=== PATIENT | male | born 1955 | race American Indian/Alaskan Native ===

== ENCOUNTER 2017-04-25 15:00 | Emergency (ER) | payer SELFPAY ==
[2017-04-25 15:00] VITALS: BMI 24.3
[2017-04-25 15:04] VITALS: BP 106/66; PULSE 60; RESP 18; TEMP 97.4; O2SAT 99
--- NOTE | 2017-04-25 15:21 | ED PDOC ---
HPI: Psych/Substance Abuse Time Seen by Provider: 04/25/17 15:09 Chief Complaint (Nursing): Medical Clearance Chief Complaint (Provider): SI for years, in police custody History Per: Patient History/Exam Limitations: no limitations Current Symptoms Are (Timing): Still Present Additional Complaint(s): Pt reports history of depression and reports SI. Pt states he has had thoughts of suicide for years. Pt denies plan. Pt denies fever/chills. Denies chest pain , SOB, etc. Past Medical History Reviewed: Historical Data, Nursing Documentation, Vital Signs Vital Signs: Last Vital Signs Temp 97.4 F L 04/25/17 15:01 Pulse 60 04/25/17 15:01 Resp 18 04/25/17 15:01 BP 106/66 04/25/17 15:01 Pulse Ox 99 04/25/17 15:01 - Medical History PMH: Depression, Hepatitis Denies: HIV, HTN, Seizures, Sexually Transmitted Disease - Surgical History Surgical History: No Surg Hx - Family History Family History: States: No Known Family Hx - Living Arrangements Living Arrangements: Other - Social History Current smoker - smoking cessation education provided: Yes Drugs: Opiates - Immunization History Hx Tetanus Toxoid Vaccination: No Hx Influenza Vaccination: No Hx Pneumococcal Vaccination: No - Home Medications Home Medications: Ambulatory Orders Medication Instructions Recorded No Known Home Med [No Known Home 12/17/14 Med] - Allergies Allergies/Adverse Reactions: Allergies Allergy/AdvReac Type Severity Reaction Status Date / Time No Known Allergies Allergy Verified 12/21/14 11:01 Review of Systems ROS Statement: Except As Marked, All Systems Reviewed And Found Negative Cardiovascular: Negative for: Chest Pain, Palpitations Respiratory: Negative for: Shortness of Breath Physical Exam - Reviewed Nursing Documentation Reviewed: Yes Vital Signs Reviewed: Yes - Physical Exam Appears: Positive for: Well, Non-toxic, No Acute Distress Head Exam: Positive for: ATRAUMATIC, NORMAL INSPECTION, NORMOCEPHALIC Skin: Positive for: Normal Color, Warm, DRY Eye Exam: Positive for: Normal appearance ENT: Positive for: Normal ENT Inspection Neck: Positive for: Normal, Painless ROM Cardiovascular/Chest: Positive for: Regular Rate, Rhythm Respiratory: Positive for: CNT, Normal Breath Sounds Gastrointestinal/Abdominal: Positive for: Normal Exam, Bowel Sounds, Soft Back: Positive for: Normal Inspection Extremity: Positive for: Normal ROM Neurologic/Psych: Positive for: Alert, Oriented - ECG O2 Sat by Pulse Oximetry: 99 Disposition - Clinical Impression Clinical Impression: Heroin abuse - Patient ED Disposition Is Patient to be Admitted: No Counseled Patient/Family Regarding: Diagnosis, Need For Followup - Disposition Disposition: Routine/Home Disposition Time: 16:19 Condition: GOOD Additional Instructions: Pt is medically and psychiatrically stable for incarceration. Instructions: Narcotic Abuse (ED)
== END 2017-04-25 16:26 | disposition home or self-care (01) ==
LOC: H.ER 15:00
DX: F11.10 Opioid abuse, uncomplicated (principal); F32.9 Major depressive disorder, single episode, unspecified; R45.851 Suicidal ideations

== ENCOUNTER 2017-05-08 00:49 | Observation (INO) | payer SELFPAY ==
[2017-05-08 00:55] VITALS: BP 100/57; PULSE 78; RESP 16; TEMP 97.6; O2SAT 87
[2017-05-08] MEDS ORDERED: Naloxone 0.4 mg/ml Inj (Adult) ONE (01:11)
[2017-05-08] MEDS ORDERED: Sodium Chloride 0.9% 1,000 ML IV STA (01:16)
[2017-05-08] MEDS ORDERED: Naloxone HCl 2mg/2ml syr IVP ONE (01:27)
--- NOTE | 2017-05-08 01:29 | ED PDOC ---
HPI: Psych/Substance Abuse Time Seen by Provider: 05/08/17 01:05 Chief Complaint (Nursing): Substance Abuse ED Caveat: Acuity of Condition History Per: EMS History/Exam Limitations: clinical condition Onset/Duration Of Symptoms: Unknown Current Symptoms Are (Timing): Still Present Additional Complaint(s): Male patient brought to the ED after being found unresponsive. He was brought in by EMS. Past Medical History Vital Signs: Last Vital Signs Temp 97.6 F 05/08/17 00:51 Pulse 78 05/08/17 00:51 Resp 16 05/08/17 00:51 BP 100/57 L 05/08/17 00:51 Pulse Ox 87 L 05/08/17 00:51 - Family History Family History: States: No Known Family Hx - Allergies Allergies/Adverse Reactions: Allergies Allergy/AdvReac Type Severity Reaction Status Date / Time Unobtainable Allergy Verified 05/08/17 00:55 Review of Systems Review Of Systems: ROS cannot be obtained secondary to pt's inabilty to answer questions. Physical Exam - Physical Exam Appears: Positive for: Non-toxic Head Exam: Positive for: ATRAUMATIC Skin: Positive for: Normal Color, Warm, Dry Eye Exam: Positive for: Other (pin point pupils) ENT: Positive for: Normal ENT Inspection Neck: Positive for: Normal, Supple Cardiovascular/Chest: Positive for: Regular Rate, Rhythm Respiratory: Positive for: Normal Breath Sounds Gastrointestinal/Abdominal: Positive for: Soft. Negative for: Distended Back: Positive for: Normal Inspection Extremity: Negative for: Deformity, Swelling Neurologic/Psych: Negative for: Alert, Oriented - Laboratory Results Result Diagrams: 05/08/17 01:44 05/08/17 01:44 - ECG O2 Sat by Pulse Oximetry: 87 (RA) Pulse Ox Interpretation: Abnormal - Critical Care Total Time (In Min): 30 Medical Decision Making Medical Decision Making: Male Rylan Penn found unresponsive with pin point pupils. O2 87% on RA. Likely heroin overdose - IV narcan given for hypoxia associated overdose with reversal. 02:04: Patient placed in ED Obs. 06:00 Patient is awake, alert, with steady gait and clear speech; patient is medically stable for discharge. All questions answered. Follow up and return instructions given. Scribe Attestation Documented by Josephine Miller acting as a scribe for Mateo Leach MD. Provider Attestation: All medical record entries made by the Scribe were at my direction and personally dictated by me. I have reviewed the chart and agree that the record accurately reflects my personal performance of the history, physical exam, medical decision making, and the department course for this patient. I have also personally directed, reviewed, and agree with the discharge instructions and disposition. Disposition - Clinical Impression Clinical Impression: Opiate overdose - Patient ED Disposition Is Patient to be Admitted: No Doctor Will See Patient In The: Office Counseled Patient/Family Regarding: Diagnosis, Need For Followup - Disposition Disposition: Routine/Home Disposition Time: 02:35 Condition: STABLE
[2017-05-08 02:01] LABS: BASO % 0.7 % (0.0-2.0); EOS # 0.4 K/uL (0.0-0.7); EOS % 6.7 % (0.0-4.0); HEMOGLOBIN 12.1 g/dL (12.0-18.0); LYMPH # 0.8 K/uL (1.0-4.3); LYMPH % 15.4 % (20.0-40.0); MEAN CELL VOLUME 97.2 fl (80.0-94.0); MEAN CORPUSCULAR HEMOGLOBIN 31.7 pg (27.0-31.0); MEAN CORPUSCULAR HGB CONC 32.6 g/dL (33.0-37.0); MEAN PLATELET VOLUME 8.1 fl (7.2-11.7); MONO # 0.4 K/uL (0.0-0.8); MONO % 7.8 % (0.0-10.0); NEUT # 3.8 K/uL (1.8-7.0); NEUT % 69.4 % (50.0-75.0); RBC 3.81 Mil/uL (4.40-5.90); WHITE BLOOD COUNT 5.5 K/uL (4.8-10.8)
[2017-05-08 02:08] LABS: ALT/SGPT 50 U/L (21-72); AST/SGOT 57 U/L (17-59); BLOOD UREA NITROGEN 13 mg/dl (9-20); CALCIUM 8.8 mg/dL (8.4-10.2); GFR AFRICAN-AMERICAN > 60; GFR NON-AFRICAN AMERICAN > 60
[2017-05-08 02:27] LABS: BARBITURATES, UR NEGATIVE (NEGATIVE); BENZODIAZEPINES, UR POSITIVE (NEGATIVE); OPIATES, UR POSITIVE (NEGATIVE); PHENCYCLIDINE, UR NEGATIVE (NEGATIVE)
--- NOTE | 2017-05-08 09:41 | CARD ---
APPROVED REPORT EKG Measurement Heart [id number] <Conclusion> Normal sinus rhythm Minimal voltage criteria for LVH, may be normal variant Borderline ECG
== END 2017-05-08 06:30 | disposition home or self-care (01) ==
LOC: EDBD 00:49 → H.ER 00:49 → MERGE 02:03 → H.EROBSV 02:03
PROVIDERS: ADMIT Emergency Medicine; ATTEND Emergency Medicine
DX: T40.1X1A Poisoning by heroin, accidental (unintentional), initial encounter (principal); Y92.9 Unspecified place or not applicable; R09.02 Hypoxemia
CPT/HCPCS: 80053; 82948; 85025; 93005; 96361; 96374; 99284; G0378; G0480; J7040